=== PATIENT | female | born 1985 ===

== ENCOUNTER → 2019-11-15 | Outpatient (CLI) | payer BC ==
[2019-11-15 18:40] LABS: RBCS (WET MOUNT) FEW RBCS SEEN; T.VAGINALIS (WET MOUNT) NO TRICHOMONAS SEEN; WBCS (WET MOUNT) 1+ WBCS SEEN; YEAST (WET MOUNT) NO YEAST SEEN
[2019-11-15 18:41] LABS: EPITHELIALS (WET MOUNT) 4+ EPITHELIALS SEEN
[2019-11-15 20:15] LABS: CHLAM PCR NOT DETECTED (NOT DETECT)
== END ==
LOC: LAB 17:58
PROVIDERS: ATTEND Nurse Practitioner Acute Care
DX: N89.8 Other specified noninflammatory disorders of vagina (principal); R30.0 Dysuria
CPT/HCPCS: 87086; 87210; 87491; 87591